=== PATIENT | male | born 1955 | race Caucasian/White ===

== ENCOUNTER 2024-06-23 13:52 | Outpatient (AMB) | payer MEDICARE, SELFPAY ==
--- NOTE | 2024-06-23 15:12 | MHC.AM.SUB ---
Vital Signs 06/23/24 15:16 BP 150/70 H Blood Pressure Location Lt brachial Position Sitting Respiration 20 Pulse 78 Pulse Source Pulse Oximeter Intake Visit Reasons: MAT Allergies ibuprofen [From MOTRIN] Allergy (Unknown, Unverified 08/15/20 16:28) SWELLING, FACIAL HPI HPI MAT: Details: patient presents as walk in for treatment of alcohol use he reports drinking daily for many years currently drinking a pint of vodka daily Has been attending AA daily since 2014 and start drinking immediately following morning meeting Treatment history: has been to [facility] X2 longest period of no etoh is 21 days in 1995 denies any history of seizure, denies any withdrawal sx currently--however does not go without drinking Medical history -full history unknown --will request problem and med list -reports peripheral neuropathy requiring cane for ambulation -reports cardiac surgical history (bypass) Discussed strategies to address alcohol use he reports his goal is to abstain from alcohol entirely. He identifies relationship strain as motivator to address drinking Based on medical history and age, medically supervised withdrawal is recommended, but he is unable to do this at this time Discussed slowly tapering use over several weeks in the meantime, patient agreeable to this and interested in starting naltrexone he was initially interested in disulfiram, but this is not an appropriate option at this time Review of Systems Const Reports as per HPI Physical Exam Vital Signs: Last Vital Signs Pulse 78 06/23/24 15:16 Resp 20 06/23/24 15:16 BP 150/70 H 06/23/24 15:16 Const General: cooperative, anxious and well groomed Nutritional Appearance: thin Orientation/consciousness: oriented to time Limitations: ambulation with cane Neuro General: oriented to time Assessment & Plan Assessment & Plan (1) Alcohol use disorder, severe, dependence: Code(s): F10.20 - Alcohol dependence, uncomplicated Category: Medical Plan: discussed tapering intake, by counting shots discussed risk of stopping abruptly discussed ATS admission at this time patient is unable to naltrexone ordered requesting med list and problem list from PCP office Medications: New naltrexone take 1/2 tab daily for 3 days then increase to one tab daily 50 mg PO DAILY 30 tabs 0RF MAT Intake Nursing Intake Reason for visit: Walk in Are you currently using?: Yes What are you taking?: Drinking vodka daily When was your last use?: this morning What is your source of income?: retired/disabled What is your current relationship status?: Current PCP: Cameron López Referral Source: PCP Substance Abuse History Substance Abuse History (includes route, frequency and quantity): Heroin, Oxycodone product, Cocaine, Marijuana and Tobacco Age of first use: 15 years old, no current drug use at this time. States tried it all as a kid Social History Children: no Do you have a support system?: his Current mode of transportation?: car Where are you currently residing?: at home IV Drug Use Have you ever shared needles?: No Have you ever belonged to a needle exchange program?: No Do you buy needles at a pharmacy?: No Have you ever overdosed?: No Have you ever been hospitalized for an overdose?: No Was Naloxone administered?: No Recovery History Have you had any periods of recovery?: Yes What is your longest time in recovery?: 21 days while at a detox facility Have you ever had inpatient treatment for your substance abuse disorder?: Yes Have you been in an inpatient detoxification program?: Yes Have you been in an inpatient Rehab/[place] house?: Yes Have you been in an outpatient Methadone Maintenance program?: No Have you been in an outpatient Suboxone Maintenance program?: No Have you been in an AA/NA support program?: Yes Have you had a Recovery Support [employer]?: Yes Have you had Peer Support?: Yes Behavioral Health History History of self harming thoughts?: No History of homicidal or suicidal intentions?: No Medical Conditions Endocarditis?: No Skin Infection: No Seizure related to withdrawal or overdose: No Head or brain injury: No Hepatitis A (if yes, have you been treated?): No Hepatitis B (if yes, have you been treated?): No Hepatitis C (if yes, have you been treated?): No HIV (if yes, have you been treated?): No TB (if yes, have you been treated?): No Other: Yes (astma, hx of cardiac bipass) Legal History History of incarceration: No Currently on parole or probation: No Court mandated programs: No Pending court cases: No DCF involvement: No
[2024-06-23 15:16] VITALS: BP 150/70; PULSE 78; RESP 20
== END 2024-06-23 14:30 | disposition home or self-care (01) ==
PROVIDERS: PCP Internal Medicine; Visit Provider Nurse Practitioner Psychiatric/Mental Health
DX: F10.20 Alcohol dependence, uncomplicated (principal)
CPT/HCPCS: 99204

== ENCOUNTER → 2024-06-23 13:52 | Outpatient (BNVA) | payer MEDICARE, SELFPAY | PROVIDERS: PCP Internal Medicine; Visit Provider Nurse Practitioner Psychiatric/Mental Health | DX: F10.20 Alcohol dependence, uncomplicated (principal); Z79.899 Other long term (current) drug therapy | CPT/HCPCS: 99202 ==

== ENCOUNTER 2024-07-17 14:18 | Outpatient (AMB) | payer MEDICARE, SELFPAY ==
[2024-07-17 14:32] VITALS: BP 160/80; PULSE 65; RESP 19; O2SAT 98
--- NOTE | 2024-07-17 14:32 | A.OFFVISCC_ITS ---
Vital Signs 07/17/24 14:32 BP 160/80 H Blood Pressure Location Rt brachial Position Sitting Respiration 19 Pulse 65 Pulse Source Pulse Oximeter Pulse Oximetry (%) 98 Intake Visit Reasons: MAT Allergies ibuprofen [From MOTRIN] Allergy (Unknown, Unverified 08/15/20 16:28) SWELLING, FACIAL HPI HPI MAT: Details: Patient presents for follow up for AUD Has not had any alcohol in 11 days Started folic acid and B1 Started Naltrexone, then stopped on 07/06 Concerned about liver --has lab orders Review of Systems Const Reports as per HPI and Reports no additional complaints Physical Exam Vital Signs: Last Vital Signs Pulse 65 07/17/24 14:32 Resp 19 07/17/24 14:32 BP 160/80 H 07/17/24 14:32 Pulse Ox 98 07/17/24 14:32 Const General: cooperative, healthy appearing and well groomed Assessment & Plan Assessment & Plan (1) Alcohol use disorder, severe, dependence: Code(s): F10.20 - Alcohol dependence, uncomplicated Category: Medical Plan: * obtain med list * referral to * Lab review
== END 2024-07-17 15:14 | disposition home or self-care (01) ==
PROVIDERS: PCP Internal Medicine; Visit Provider Nurse Practitioner Psychiatric/Mental Health
DX: F10.20 Alcohol dependence, uncomplicated (principal)
CPT/HCPCS: 99213

== ENCOUNTER → 2024-07-17 14:18 | Outpatient (BNVA) | payer MEDICARE, MEDICAID, SELFPAY | PROVIDERS: PCP Internal Medicine; Visit Provider Nurse Practitioner Psychiatric/Mental Health | DX: F10.20 Alcohol dependence, uncomplicated (principal) | CPT/HCPCS: 99212 ==